=== PATIENT | male | born 1955 | race Caucasian/White ===

== ENCOUNTER 2022-08-11 11:07 | Emergency (ER) | payer MEDICARE, OTHER ==
[~2022-08-11] VITALS: Ht 172.7 cm; Wt 133.8 kg
[~2022-08-11 11:07] MED LIST: ATOVASTATIN PO; BUDE10.2; DIVA500T4 PO; DOCU-270 PO; FOLI1TAB94 PO; LISI20TA30 PO; MULT1CAP34 PO
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
[2022-08-11 11:08] VITALS: BP 118/56
[2022-08-11] MEDS ORDERED: HYDROCODONE/APAP 5/325MG TABLET PO ONE (11:30)
[2022-08-11] MEDS ORDERED: HYDROCODONE/APAP 5/325MG TABLET ONE (11:31)
[2022-08-11] MEDS ORDERED: HYDR-4209 PO (12:52)
== END 2022-08-11 13:21 | disposition home or self-care (01) ==
LOC: ER 11:08
DX: S00.11XA Contusion of right eyelid and periocular area, initial encounter (principal); M54.2 Cervicalgia; I10 Essential (primary) hypertension; J44.9 Chronic obstructive pulmonary disease, unspecified; J45.909 Unspecified asthma, uncomplicated; F31.9 Bipolar disorder, unspecified; Z79.899 Other long term (current) drug therapy; W18.30XA Fall on same level, unspecified, initial encounter; Y93.89 Activity, other specified; Y92.89 Other specified places as the place of occurrence of the external cause; Y99.8 Other external cause status
CPT/HCPCS: 70450-TC; 72125-TC

== ENCOUNTER 2022-08-18 19:58 | Inpatient (IN) | payer OTHER ==
[~2022-08-18] VITALS: Ht 170.2 cm; Wt 135.6 kg
[~2022-08-18 19:58] MED LIST changes: +HYDR-4209 PO
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
--- NOTE | 2022-08-18 20:30 | NUR ---
COVID SWAB DONE AND SENT TO LAB
--- NOTE | 2022-08-18 20:31 | NUR ---
SWITCH INSPECTOR AT BEDSIDE
--- NOTE | 2022-08-18 20:32 | NUR ---
EKG DONE AT BEDSIDE
--- NOTE | 2022-08-18 20:50 | NUR ---
IV CANNULA G18 INSERTED ON RIGHT AC. BLOOD DRAWN AND SENT TO LAB
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
--- NOTE | 2022-08-18 20:56 | NUR ---
PATIENT BROUGHT TO CT DEPT
--- NOTE | 2022-08-18 21:09 | NUR ---
BROUGHT BACK FROM CT SCAN
[2022-08-18 21:23] LABS: BASOPHILS % (AUTO) 0.2 % (0.0-2.0); EOSINOPHILS % (AUTO) 0.9 % (0.0-6.0); HEMATOCRIT 38 % (39-51); HEMOGLOBIN 12.5 g/dL (13.5-17.5); LYMPHOCYTES # (AUTO) 1.2 K/uL (0.8-4.8); LYMPHOCYTES % (AUTO) 8.1 % (20.0-44.0); MEAN CORPUSCULAR HGB CONC 33 g/dl (31.0-36.0); MEAN CORPUSCULAR VOLUME 91 fL (80-96); MONOCYTES # (AUTO) 0.9 K/uL (0.1-1.30); MONOCYTES % (AUTO) 6.4 % (2.0-12.0); NEUTROPHILS # (AUTO) 12.2 K/uL (1.8-8.9); NEUTROPHILS % (AUTO) 84.4 % (43.0-81.0); PLATELET COUNT (AUTO) 379 K/uL (150-450); RED BLOOD CELL COUNT(AUTO) 4.19 MIL/uL (4.5-6.0); WHITE BLOOD COUNT (AUTO) 14.5 K/uL (4.3-11.0)
[2022-08-18 21:39] LABS: CALCIUM, SERUM 9.4 mg/dL (8.5-10.1); CARBON DIOXIDE 29 mmol/L (21-32); CHLORIDE 102 mmol/L (98-107); CREATININE 1.2 mg/dL (0.6-1.3); GLUCOSE 100 mg/dL (74-106); POTASSIUM 3.5 mmol/L (3.5-5.1); SODIUM SERUM 141 mmol/L (136-145); UREA NITROGEN, BLOOD 39 mg/dL (7-18)
--- NOTE | 2022-08-18 22:03 | NUR ---
TROP 92
--- NOTE | 2022-08-18 22:31 | NUR ---
Michele baxter in [facility] - 08/18/22 at 2231 by EMILY RM [id number]
--- NOTE | 2022-08-19 02:29 | NUR ---
TROP 78
--- NOTE | 2022-08-19 02:39 | NUR ---
FACESHEET AND CLINICALS WERE FAXED TO [facility]
--- NOTE | 2022-08-19 03:03 | NUR ---
DR LANDRUM ON THE PHONE WITH MARVIN SIDE
--- NOTE | 2022-08-19 04:16 | NUR ---
FAXED MD'S NOTED TO [facility] PER [employer] [employer] [phone]
[2022-08-19] MEDS ORDERED: ASPIRIN 81 MG TAB.CHEW ONE (04:30)
[2022-08-19] MEDS ORDERED: IV NS 0.9% 1,000 ML BAG IV ONE (04:30)
[2022-08-19] MEDS ORDERED: ASPIRIN 81 MG TAB.CHEW PO ONE (04:30)
--- NOTE | 2022-08-19 06:33 | NUR ---
SPOKE TO [facility] [employer] AT [phone]. STILL LOOKING FOR BED AVAILABLE AT THEIR [facility]
--- NOTE | 2022-08-19 07:24 | NUR ---
REPORT GIVEN TO CHARLES KEY
--- NOTE | 2022-08-19 08:01 | NUR ---
spoke to [facility] telephonic nurse case manager Dr Vincenzo thomas MD. Verbal authorization to admit patient here in the hospital.
--- NOTE | 2022-08-19 08:08 | NUR ---
DR. COTA SPEAKING WITH DR. WILBURN
[2022-08-19] MEDS ORDERED: FLUT1BLS6 INH (08:40)
[2022-08-19] MEDS ORDERED: AMLO-212 PO (08:40)
[2022-08-19] MEDS ORDERED: TRAM50TA2 PO (08:40)
[2022-08-19] MEDS ORDERED: ASPI-1420 PO (08:40)
[2022-08-19] MEDS ORDERED: OLME1TAB92 PO (08:40)
[2022-08-19] MEDS ORDERED: ROSU20TA32 PO (08:40)
[2022-08-19] MEDS ORDERED: METO-357 PO (08:40)
[2022-08-19] MEDS ORDERED: TRAZ-182 PO (08:40)
[2022-08-19] MEDS ORDERED: DULO20CA19 PO (08:40)
[2022-08-19] MEDS ORDERED: ALBU18HF2 IH (08:41)
--- NOTE | 2022-08-19 08:42 | NUR ---
BED 116-1
--- NOTE | 2022-08-19 08:49 | NUR ---
ENDORSEMENT GIVEN TO JULIANN SOTO OF [facility]
--- NOTE | 2022-08-19 10:00 | NUR ---
RN/NOTE PATIENT ARRIVED VIA GURNEY AWAKE AND ALERT A&OX4. ALL VSS PATIENT SATTING AT 98% ON ROOM AIR. PATIENT SR. DIET REGULAR. ALL SAFETY FALL PRECAUTIONS IN PLACE BED LOCK ON, BED ALARM ON, SIDE RAILS UP, CALL LIGHT WITHIN REACH, WILL CONTINUE TO MONITOR.
[2022-08-19] MEDS ORDERED: ALBUTEROL SULFATE 8 GM HFA.AER.AD IH PRN (11:30)
[2022-08-19] MEDS ORDERED: ACETAMINOPHEN 650 MG/20.3 ML UDC NG PRN (11:30)
[2022-08-19] MEDS ORDERED: ALBUTEROL FS 2.5 MG/0.5 ML VIAL.NEB NEB PRN (12:30)
[2022-08-19] MEDS: CEFTRIAXONE 1 G in IV D5W 50 ML IV SCH (13:02)
[2022-08-19] MEDS: TRAMADOL HCL 50 MG TABLET PO PRN (13:03)
[2022-08-19] MEDS: AZITHROMYCIN 500 MG in IV D5W 250 ML IV SCH (13:03)
[2022-08-19] MEDS: ASPIRIN EC 81 MG TABLET.DR PO SCH (13:04)
[2022-08-19] MEDS: ENOXAPARIN SODIUM 40 MG/0.4 ML DISP.SYRIN SQ SCH (13:27)
[2022-08-19] MEDS: IV 1/2NS 1000 ML 1,000 ML IV PRN (13:32)
--- NOTE | 2022-08-19 17:51 | NUR ---
RN/NOTE PATIENT WAS PUT ON 2L NC TO SUPPORT HIS BREATHING. PATIENT WAS EXPERIENCING SOB WHILE EATING.
--- NOTE | 2022-08-19 18:46 | NUR ---
RN/NOTE PATIENT AWAKE AND ALERT A&OX4. ALL VSS PATIENT SATTING AT 98% ON 2L NC. PATIENT SR. DIET REGULAR. ALL SAFETY FALL PRECAUTIONS IN PLACE BED LOCK ON, BED ALARM ON, SIDE RAILS UP, CALL LIGHT WITHIN REACH, NO SIGNS OF DISTRESS. ALL QUESTIONS ANSWERED. ALL CARE ENDORSED TO PHARMACY RESIDENT RN.
[2022-08-19] MEDS ORDERED: TRAZODONE 50 MG TABLET PO SCH (22:00)
[2022-08-20] MEDS: IV 1/2NS 1000 ML 1,000 ML IV PRN (06:15)
[2022-08-20 06:29] LABS: BASOPHILS # (AUTO) 0.1 K/uL (0.0-0.2); BASOPHILS % (AUTO) 0.7 % (0.0-2.0); HEMATOCRIT 38 % (39-51); HEMOGLOBIN 12.5 g/dL (13.5-17.5); LYMPHOCYTES # (AUTO) 1.4 K/uL (0.8-4.8); LYMPHOCYTES % (AUTO) 11.4 % (20.0-44.0); MEAN CORPUSCULAR HGB CONC 33 g/dl (31.0-36.0); MEAN CORPUSCULAR VOLUME 91 fL (80-96); MONOCYTES # (AUTO) 0.8 K/uL (0.1-1.30); MONOCYTES % (AUTO) 6.3 % (2.0-12.0); NEUTROPHILS # (AUTO) 9.3 K/uL (1.8-8.9); NEUTROPHILS % (AUTO) 76.6 % (43.0-81.0); PLATELET COUNT (AUTO) 375 K/uL (150-450); RED BLOOD CELL COUNT(AUTO) 4.21 MIL/uL (4.5-6.0); WHITE BLOOD COUNT (AUTO) 12.1 K/uL (4.3-11.0)
[2022-08-20 07:01] LABS: ALBUMIN 2.7 g/dL (3.4-5.0); BILIRUBIN,TOTAL 0.4 mg/dL (0.2-1.0); CALCIUM, SERUM 8.5 mg/dL (8.5-10.1); POTASSIUM 3.6 mmol/L (3.5-5.1); TOTAL PROTEIN, SERUM 6.8 g/dL (6.4-8.2)
--- NOTE | 2022-08-20 07:36 | NUR ---
END OF SHIF, PATIENT AWAKE AND ALERT A&OX4, AT 2LPM VIA NC, NO SOB/ACUTE DISTRESS NOTED DURING THE SHIFT, NO COMPLAINS OF SOB/DISCOMFORT DURING THE NIGHT, WOUND CONSULT TO FOLLOW, OTHERWISE STABLE DURING THE NIGHT, ALL SAFETY FALL PRECAUTIONS IN PLACE BED LOCK ON, BED ALARM ON, SIDE RAILS UP, CALL LIGHT WITHIN REACH, WILL ENDORSE CONTINUITY OF CARE TO ONCOMING NURSE.
[2022-08-20 08:00] VITALS: BP 125/70
[2022-08-20] MEDS ORDERED: DULOXETINE HCL 20 MG CAPSULE.DR PO SCH (09:00)
[2022-08-20] MEDS ORDERED: AMLODIPINE BESYLATE 5 MG TABLET PO SCH (09:00)
[2022-08-20] MEDS ORDERED: Medication Not On Formulary EA (Fluticasone/Umeclidin/Vilanter (Trelegy Ellipta 100-62.5 INH SCH (09:00)
[2022-08-20] MEDS ORDERED: METOPROLOL SUCCINATE 50 MG TAB.SR.24H PO SCH (09:00)
[2022-08-20] MEDS ORDERED: ASPIRIN EC 81 MG TABLET.DR PO SCH (09:00)
[2022-08-20] MEDS: ASPIRIN EC 81 MG TABLET.DR PO SCH (09:31)
[2022-08-20] MEDS: TRAMADOL HCL 50 MG TABLET PO PRN (10:24)
[2022-08-20 12:00] VITALS: BP 142/64
[2022-08-20] MEDS: CEFTRIAXONE 1 G in IV D5W 50 ML IV SCH (12:03)
[2022-08-20] MEDS: ENOXAPARIN SODIUM 40 MG/0.4 ML DISP.SYRIN SQ SCH (12:04)
[2022-08-20] MEDS: AZITHROMYCIN 500 MG in IV D5W 250 ML IV SCH (13:01)
[2022-08-20 16:00] VITALS: BP 137/73
--- NOTE | 2022-08-20 17:25 | NUR ---
internal salesperson notes: pt awake, alert and oriented x 4 not in any distress, o2 sat 93% on room air, left forearm saline lock patent and flushed well, discharge instruction given to pt verbalized understanding, ambulance came got report, called [facility] season and spoke to Gene and gave report, pt left in stable condition
== END 2022-08-20 18:12 | DRG 557 ==
LOC: ER 19:59 → TELE1 08-19 09:15
PROVIDERS: ADMIT Internal Medicine; ATTEND Internal Medicine
DX: M62.82 Rhabdomyolysis (principal); J15.9 Unspecified bacterial pneumonia; Z68.42 Body mass index [BMI] 45.0-49.9, adult; J45.909 Unspecified asthma, uncomplicated; E66.9 Obesity, unspecified; E78.5 Hyperlipidemia, unspecified; I10 Essential (primary) hypertension; F31.9 Bipolar disorder, unspecified; R29.6 Repeated falls; Z87.891 Personal history of nicotine dependence; R53.1 Weakness; L89.629 Pressure ulcer of left heel, unspecified stage; L89.619 Pressure ulcer of right heel, unspecified stage; W19.XXXA Unspecified fall, initial encounter; Y93.9 Activity, unspecified; S01.01XA Laceration without foreign body of scalp, initial encounter; Y92.009 Unspecified place in unspecified non-institutional (private) residence as the place of occurrence of the external cause; R77.8 Other specified abnormalities of plasma proteins
CPT/HCPCS: 36415; 70450-TC; 71045-TC; 71250-TC; 72170-TC; 73030-TC; 73620-TC; 80048-TC; 80053-TC; 82550-TC; 82553; 84484-TC; 85025-TC; 87081-TC; 93307-TC; 97116-TC; 97530-TC; C9803; G0378; J0456; J0696; J1650; J3490; J7030; J7050; J7060